=== PATIENT | male | born 1950 | race Caucasian/White ===

== ENCOUNTER → 2019-01-04 | Outpatient (CLI) | payer OTHER ==
--- NOTE | 2019-01-03 10:17 | H ---
[address] [address] HISTORY AND PHYSICAL Name: PERI BLACKMON Room: [facility].#: [id number] Admission: Attend Phys: Carloz Mccray MD, Discharge: Date of : 48 Report #: [id number] THIS REPORT FOR: //name// CC: [facility] physician/PCP Carloz Mccray DATE OF SERVICE: 01/03/2019 The patient being admitted through same day surgery to have a cardiac catheterization on 01/03/2019. HISTORY OF PRESENT ILLNESS: The patient is a very pleasant 68-year-old male with diabetes and known coronary artery disease status post remote coronary stenting. Recently, he has noted intermittent exertional dyspnea, but no typical chest discomfort, strongly suggestive of angina. He does have underlying diabetes, hyperlipidemia, and remote history of atrial fibrillation. Recent nuclear stress test was reviewed and it demonstrates a completely reversible anteroapical defect, fixed inferior defect, partially reversible lateral defect. MEDICATIONS: Include furosemide 80 mg daily, aspirin 81 mg daily, metformin 1000 mg b.i.d., Naprosyn 220 mg b.i.d., Entresto 49/51 b.i.d., simvastatin 40 mg at bedtime, spironolactone 25 mg daily, potassium chloride 20 mEq daily, carvedilol 12.5 mg b.i.d., Plavix 75 mg daily and sitagliptin 100 mg daily. PAST MEDICAL HISTORY: Remarkable for diabetes, hypertension, hypercholesterolemia and weight excess. SOCIAL HISTORY: The patient is a nonsmoker. REVIEW OF SYSTEMS: Remarkable for the following: He does note some dyspnea on exertion. He notes mild arthritic complaints. PHYSICAL EXAMINATION: GENERAL: Reveals a modestly overweight middle-aged male. VITAL SIGNS: Blood pressure is 130/70, pulse rate is 68, respirations are 18 per minute. NECK: Jugular venous pressure is normal. Carotids are 1-2+. CHEST: Clear. CARDIOVASCULAR: Reveals normal first and second heart sounds with a question of S4 gallop. ABDOMEN: Modestly obese. EXTREMITIES: Without significant arthritic changes or [place] [address] HISTORY AND PHYSICAL Name: PERI BLACKMON Room: [facility]#: [id number] Admission: Attend Phys: Carloz Mccray MD, Discharge: Date of : 48 Report #: [id number] intact femoral, pedal and radial pulses. Recent nuclear stress test demonstrated multi-territory effects with reversible anteroapical ischemia, fixed inferior defect and a partially reversible lateral defect. IMPRESSION: 1. Coronary artery disease, status post remote stenting. 2. Recently abnormal nuclear stress test with multiple defects as outlined above including a completely reversible anteroapical defect. 3. Type 2 diabetes. 4. Hypertension. 5. Hypercholesterolemia. 6. Mild weight excess. RECOMMENDATIONS: Given the aforementioned clinical scenario with exertional dyspnea, multiple risk factors, prior stenting and a significantly abnormal nuclear stress test with multi-territory ischemia in particular remarkable anteroapical reversible defect, I would recommend cardiac catheterization to define current coronary anatomy of prospects for subsequent therapeutic modification. This has been discussed with the patient, we will plan to proceed with cardiac catheterization on 01/03/2019. The patient being admitted through outpatient to the cardiac catheterization laboratory on 01/03/2019. <ELECTRONICALLY SIGNED> By: Carloz Mccray MD, [facility] 01/03/19 1017 1416 [id number] Mccray MD, FACC /nt
[2019-01-04] VITALS (8 sets, daily range): BP systolic 108–135; BP diastolic 54–65
[~2019-01-04] VITALS: Ht 175.3 cm; Wt 117.9 kg
[~2019-01-04] MED LIST: ADULT LOW DOSE81 MG PO; ALEVE220 MG PO; ALTACE5 M1 PO; CARVEDILOL3.125 MG PO; EFFIENT10 MG PO; ENTRESTO 49 MG1 EACH PO; FUROSEMIDE 40 M40 MG PO; JANUVIA100 MG PO; KLOR-CON 10 ER10 MEQ PO; KLOR-CON 1010 MEQ PO; LEVEMIR SUBQ; METFORMIN HCL500 MG PO; NITROGLYCERIN0.4 MG PO; NOVOLOG100 UNIT/1 SUBQ; PACERONE 200 M200 M1 PO; POTASSIUM20 PO; PROTONIX40 M2 PO; SPIRONOLACTONE25 M1 PO; ZOCOR40 MG PO
[2019-01-04 09:54] LABS: HEMATOCRIT 41.1 % (42.0-52.0); HEMOGLOBIN 14.4 gm/dL (14.0-18.0); MCV 88.7 fL (80.0-100.0); RBC 4.64 mil/uL (4.50-6.00); RDW-CV 13.3 % (10.5-14.5); WBC 7.6 thou/uL (4.0-11.0)
[2019-01-04 10:04] LABS: APTT 26.8 Seconds (25.0-31.3); PROTIME 10.4 Seconds (9.20-11.50)
[2019-01-04 10:07] LABS: CALCIUM 8.9 mg/dL (8.5-10.1); CREATININE 0.9 mg/dL (0.6-1.3); POTASSIUM 3.9 mmol/L (3.5-5.1)
--- NOTE | 2019-01-04 17:41 | EKG ---
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1950 Requested By: Carloz Mccray Order Number: [id number] Reading MD: Roland Russell Measurements Intervals [place] Rate: 61 P: 25 MA: 216 QRS: -12 QRSD: 105 T: 50 QT: 410 QTc: 413 Interpretive Statements Sinus rhythm Borderline prolonged MA interval Abnormal R-wave progression, early transition Inferior infarct, old No previous ECG available for comparison Electronically Signed On 01-04-2019 17:41:09 CDT by Roland Russell [email or web address] <ELECTRONICALLY SIGNED> By: Roland Russell MD, [facility] 01/04/19 1741 1040 1040 Roland Russell MD, FACC /EPI
--- NOTE | 2019-01-08 11:41 | CARD ---
[address] [address] CARDIAC CATH REPORT Name: PERI BLACKMON Room: [facility].#: [id number] Admission: 01/04/19 Attend Phys: Carloz Mccray MD, Discharge: Date of : 48 Report #: [id number] THIS REPORT FOR: //name// APPROVED REPORT Study performed: 01/04/2019 10:05:49 Patient Details Patient Status: Out-Patient Room #: The patient is a 68 year-old male Event Personnel Carloz Mccray Continuous Improvement Manager, Claire Hernandez RN Weatherization Crew Leader, Umair Corral (R) Monitor, Dusty Gavin WOOD MODEL MAKER Scrub Procedures Performed Left Heart Cath w/or w/o Coronaries [id number] [facility] Indication Positive stress test Risk Factors Hypercholesterolemia, Hypertension, Diabetes Previous Procedures/Diagnoses Previous PCI, Previous AL Procedure Narrative The patient was brought electively to the Cardiac Catheterization Laboratory and was prepped and draped in a sterile manner. The right femoral was infiltrated with 2% Lidocaine subcutaneous anesthesia. A Multi-Pack 6fr sheath was inserted into the right femoral artery. Coronary angiography was performed using coronary diagnostic catheters. The right coronary system was accessed and visualized with a JR4 catheter. The left coronary system was accessed and visualized with a Diagnostic catheter. The left ventricle was accessed and visualized with a Diagnostic catheter. Left ventricular/Aortic Valve gradient assessed via catheter pullback. The patient tolerated the procedure well and there were no complications associated with the procedure. There was no hematoma. Intraoperative Conscious Sedation Fentanyl 25 mcg Dose: 1682 mGy [facility] [address] [place] [address] CARDIAC CATH REPORT Name: PERI BLACKMON Room: [facility]#: [id number] Admission: 01/04/19 Attend Phys: Carloz Mccray MD, Discharge: Date of : 48 Report #: [id number] Contrast Type and Amount: Visipaque 100 ml Coronary Angiography The patient's coronary anatomy is right dominant. Diagnostic Cath Left Main 0% narrowing LAD 100% mid vessel occlusion after a prominent septal core driller helper with [id number] collaterals filling the distal LAD; there was an 80% proximal first diagonal stenosis Circumflex Tandem 90 and 90% mid circumflex stenoses Right Coronary 75% tubular mid right coronary stenosis with 50% distal narrowing and 40% narrowing of the proximal portion of a prominent posterolateral branch Left Ventriculography The left ventricle is normal in size with normal contractility. The left ventricular ejection fraction is estimated to be 55-60%. Left ventricular wall motion abnormalities are not present. There is no mitral insufficiency. Hemodynamics The aortic pressure is 116/48 mmHg with a mean of mmHg. The left ventricular pressure is 121/4 mmHg with a mean of mmHg. The left ventricular end diastolic pressure is 14 mmHg. There was no gradient across the aortic valve upon pullback. Conclusion #1 significant multivessel coronary artery disease characterized by the following: A 100% mid LAD occlusion after a prominent septal core driller helper with 80% first diagonal stenosis B tandem 80 and 90% midcircumflex stenoses, this being a nondominant vessel C dominant right coronary artery with 75% tubular mid vessel narrowing and 50% distal narrowing and 40% narrowing of the proximal portion of a prominent posterolateral branch #2 normal left ventricular systolic function, estimate ejection fraction being 55-60% #3 normal left-[place] [address] CARDIAC CATH REPORT Name: PERI BLACKMON Room: [facility]#: [id number] Admission: 01/04/19 Attend Phys: Carloz Mccray MD, Discharge: Date of : 48 Report #: [id number] Recommendations Cardiac Risk Reduction Program CABG Diagnostic Cath Approved by: Carloz Mccray MD Date/Time: 01/08/2019 11:40:34 <ELECTRONICALLY SIGNED> By: Carloz Mccray MD, [facility] 01/08/19 1141 1141 1141Carloz Mccray MD, FAC /INF
== END | disposition home or self-care (01) ==
LOC: M.CL 01-03 10:30
PROVIDERS: Internal Medicine
DX: I25.10 Atherosclerotic heart disease of native coronary artery without angina pectoris (principal); I65.23 Occlusion and stenosis of bilateral carotid arteries; I10 Essential (primary) hypertension; E11.9 Type 2 diabetes mellitus without complications; I48.91 Unspecified atrial fibrillation; E78.00 Pure hypercholesterolemia, unspecified; Z82.49 Family history of ischemic heart disease and other diseases of the circulatory system; Z79.82 Long term (current) use of aspirin; Z79.899 Other long term (current) drug therapy; Z98.890 Other specified postprocedural states; Z79.01 Long term (current) use of anticoagulants